=== PATIENT | female | born 1985 | race Caucasian/White ===

== ENCOUNTER 2024-04-15 09:48 | Emergency (ER) | payer SELFPAY ==
[2024-04-15 09:51] VITALS: BP 164/92
--- NOTE | 2024-04-15 10:05 | ED.GENMED ---
History of Present Illness
General
Chief Complaint: Allergic Reaction
Time Seen by Provider: 04/15/24 10:05
History of Present Illness
History of Present Illness:
HPI: Patient presents with hives that started on her abdomen 3 days ago. After she took Benadryl, she noted that her heart was racing and does not want to take any further Benadryl. 2 days ago she was started on prednisone. There has been no
significant improvement and there has been worsening of the rash.
EXAM:
GENERAL: Well appearing in no distress
HEENT: Moist oral mucosa, periorbital edema noted
CARDIOVASCULAR: No murmurs, tachycardic heart rate, regular rhythm, No chest wall tenderness
PULMONARY: No respiratory distress, breath sounds are clear and equal
ABDOMEN: Soft with no peritoneal signs, no tenderness
NEUROLOGIC: Excellent strength all extremities, no coordination deficits
PSYCHIATRIC: Appropriate mental status, normal insight and judgement
EXTREMITIES: Nontender, no edema, moves all extremities equally
SKIN: There is extensive diffuse urticarial rash
TIME OF INITIAL ENCOUNTER: 10:15 AM
NUMBER AND COMPLEXITY OF PROBLEMS ADDRESSED AT THE ENCOUNTER
� Chronic conditions affecting care: High blood pressure
� Acute Exacerbation and/or Progression of Chronic Illness: This is an acute problem
� Differential Diagnosis includes: Contact dermatitis, poison meli, medication reaction
AMOUNT AND/OR COMPLEXITY OF DATA TO BE REVIEWED AND ANALYZED
� I performed an independent evaluation of and my interpretation is:
EKG:
CT:
X-rays:
Laboratory Studies: White count 15.6 (patient on steroids), hemoglobin normal, platelets normal, chemistries unremarkable
Other:
� Review of other/old records: Reviewed records. The patient had hysteroscopy with D&C and polypectomy in 2022
� Clinical information was obtained by an independent historian: I spoke to family friend at bedside
� Prescriptions/Medications Considered but not given:
� Further testing considered but not performed:
RISK OF COMPLICATIONS AND/OR MORBIDITY OR MORTALITY OF PATIENT MANAGEMENT
� Social determinants of health affecting care: Lives at home
� Discussion with other providers:
� Escalation of care including admission/observation vs risk of discharge considered: The patient has rather extensive urticarial rash. She has not improved with oral medication and is tachycardic. Will give IV fluids and give
IV steroids. She declines Benadryl. On reassessment after meds given, at 12:30 PM, she has markedly improved. I instructed her to take 6 prednisone pills tomorrow and the following day. Repeat heart rate on physical examination at time of
discharge is 100.
Phy Exam
Physical Exam
Physical Exam:
See HPI
Course
Orders/Labs/Results
Orders:
Orders
04/15/24 10:18
0.9% Sodium Chloride 1000 ml [Nss] 1,000 ml IV BOLUS
Famotidine [Pepcid] 20 mg IV NOW STA
MethylPREDNISolone PF [Solu-Medrol Pf] 125 mg IV NOW STA
04/15/24 10:35
Basic Metabolic Panel Urgent
Complete Blood Count/With Diff Urgent
Abnormal Lab Results
04/15/24
10:35
WBC 15.6 H 10^3/uL
(4.8-10.8)
Abs Immat Gran (auto) 0.1 H 10^3/uL
(0-0.05)
Absolute Neuts (auto) 12.7 H 10^3/uL
(1.4-6.5)
Absolute Monos (auto) 0.7 H 10^3/uL
(0.1-0.6)
Neutrophils % 81.7 H %
(42.2-75.2)
Lymphocytes % 13.3 L %
(20.5-51.1)
Glucose 124 H mg/dl
(70-99)
04/15/24 10:35
04/15/24 10:35
Vital Signs
Initial and Last Documented VS:
Initial Vital Signs
Temp Pulse Resp BP Pulse Ox
99.5 F 125 16 164/92 98
04/15/24 09:51 04/15/24 09:51 04/15/24 09:51 04/15/24 09:51 04/15/24 09:51
Last Documented Vital Signs
Temp Pulse Resp BP Pulse Ox
99.5 F 109 20 139/99 97
04/15/24 09:51 04/15/24 10:30 04/15/24 10:30 04/15/24 10:21 04/15/24 10:30
*Critical Care Note
Total Time (30-74mins, 75-104mins- exclusive of procedures): Not Applicable
ED Attending Note
-
Portions of this chart may have been created with voice recognition software.� Occasional wrong word or��sound alike� substitutions may have occurred due to the inherent limitations of voice recognition software.
Discharge Plan
Departure
Prescriptions:
No Action
bupropion HCl 75 mg Tablet
75 mg PO DAILY
escitalopram oxalate [Lexapro] 10 mg Tablet
10 mg PO DAILY
multivitamin
1 tab PO DAILY
Referrals:
NONE,* [Family Provider] -
Interventions
Interventions:
*Risk Screen - Suicide Last Done: 04/15/24 10:23
*General Assessment Last Done: 04/15/24 10:23
*Neglect/Abuse Screening Last Done: 04/15/24 10:23
ED- Fall Risk Assessment Last Done: 04/15/24 10:23
*ED COVID-19 Vaccine History Last Done: 04/15/24 10:18
ED- Cardiac Assessment Last Done: 04/15/24 10:23
ED- Pulmonary Assessment Last Done: 04/15/24 10:23
ED-Skin Assessment Last Done: 04/15/24 10:23
Discharge Date and Time
Print Language: ESTONIAN
[2024-04-15 10:18] VITALS: BMI 35.5
[2024-04-15 10:21] VITALS: BP 139/99
--- NOTE | 2024-04-15 10:30 | EDRN ---
Received patient on stretcher. Patient stated that she developed a rash on that started on her waist band and it spread all over her body. Patient stated that she went to urgent care and was started on Prednisone and was told to stop taking
Benadryl because of her elevated heart rate. Patient denies chest pain,SOB and throat tightness.
[2024-04-15] MEDS: NSS 1000 IV (10:43)
[2024-04-15] MEDS: PEPCID 20 MG IV (10:44)
[2024-04-15] MEDS: SOLU-MEDROL PF 125 MG IV (10:44)
[2024-04-15 10:58] LABS: Blood Urea Nitrogen 9 mg/dl (7-17); Calcium 9.4 mg/dl (8.4-10.2); Carbon Dioxide 25 mmol/L (22-30); Chloride 104 mmol/L (98-107); Estimated Creatinine Clearance 119 ml/min; Glucose 124 mg/dl (70-99); Potassium 4.1 mmol/L (3.5-5.1); Sodium 142 mmol/L (135-145); eGFR > 60.00
[2024-04-15 11:00] VITALS: BP 133/89
[2024-04-15 11:13] LABS: % Basophils 0.2 % (0-2); % Eosinophils 0.2 % (0-6); % Immature Granulocytes 0.4 % (0-0.5); % Lymphocytes 13.3 % (20.5-51.1); % Monocytes 4.2 % (1.7-9.3); % Neutrophils 81.7 % (42.2-75.2); Absolute Immature Granulocytes 0.1 10^3/uL (0-0.05); Absolute Lymphocytes 2.1 10^3/uL (1.2-3.4); Absolute Monocytes 0.7 10^3/uL (0.1-0.6); Absolute Neutrophils 12.7 10^3/uL (1.4-6.5); Hematocrit 43.6 % (37.0-47.0); Hemoglobin 14.6 g/dL (12.0-16.0); Mean Corp Hgb Conc. 33.5 g/dL (33.0-37.0); Mean Corpuscular Hgb 29.1 pg (27.0-31.0); Mean Platelet Volume 9.5 fL (7.4-10.4); Nucleated Red Blood Cells % 0 %; Platelet Count 304 10^3/uL (130-400); Red Blood Cell Count 5.01 10^6/uL (4.20-5.40); Red Cell Dist. Width 13.9 % (11.5-14.5); White Blood Cell Count 15.6 10^3/uL (4.8-10.8)
[2024-04-15 12:00] VITALS: BP 141/88
== END 2024-04-15 14:26 | disposition home or self-care (01) ==
LOC: EMR 09:48
PROVIDERS: EMERGENCY PHYSICIAN Emergency Medicine
DX: L50.9 Urticaria, unspecified (principal)
CPT/HCPCS: 99283; 96374; 96375; 96361; 80048; 85025